=== PATIENT | male | born 1940 | race Caucasian/White ===

== ENCOUNTER 2017-02-18 23:46 | Inpatient (IN) ==
[2017-02-19] MEDS ORDERED: KETOROLAC 30 MG/1 ML VIAL IV STA (00:10)
[2017-02-19] MEDS ORDERED: PANTOPRAZOLE 40 MG VIAL IV STA (00:11)
[2017-02-19 00:17] LABS: Basophils # 0.1 10*3/uL (0.0-0.2); Basophils % 1.1 % (0.0-0.8); Eosinophils # 0.1 10*3/uL (0.0-0.87); Eosinophils % 1.4 % (0.00-10.9); Hematocrit 44.9 VOL% (42.0-52.0); Hemoglobin 14.6 GM/DL (14.0-18.0); Immature Granulocytes % 0.4 %; Immature Granulocytes Absolute 0.03 #; Lymphocytes # 0.6 10*3/uL (1.4-4.0); Lymphocytes % 8.4 % (21.2-54.2); Mean Corpuscular HGB Conc 32.5 GM/DL (32-36); Mean Corpuscular Hemoglobin 32 PG (27-34); Mean Corpuscular Volume 97.6 FL (87-102); Mean Platelet Volume 10.6 FL (9.6-12.0); Monocytes # 0.5 10*3/uL (0.11-0.8); Monocytes % 6.8 % (1.7-12.7); Neutrophils # 5.7 10*3/uL (1.4-7.4); Neutrophils % 81.9 % (38.7-73.9); Platelet Count 165 T/CUMM (130-400); Red Cell Distribution Width 13.5 % (9.3-17.3)
[2017-02-19] MEDS ORDERED: HEPARIN 1,000 UNIT/1 ML VIAL IV STA (00:30)
[2017-02-19] MEDS ORDERED: HEPARIN DRIP 25,000 UNITS/500 ML PREMIX IV SCH (00:30)
[2017-02-19] MEDS ORDERED: PANTOPRAZOLE 40 MG VIAL IV ONE (00:31)
[2017-02-19] MEDS ORDERED: KETOROLAC 30 MG/1 ML VIAL ONE (00:31)
[2017-02-19] MEDS ORDERED: NITROGLYCERIN 2% OINT 1 INCH/GM PACK TOP STA (00:32)
--- NOTE | 2017-02-19 00:38 | Emergency Department Note ---
Arrival - Arrival Chief Complaint: Chest Pain Stated Complaint: chest pain, sob ED Nursing Triage Note: C/O Chest pain over left breast radiating down left arm. Onset approx one hour ago while sitting down. +nausea and shortness of breath with the pain. Pt reports some relief since he arrived. Mode of Arrival: Wheelchair Time Seen by Provider: 02/19/17 00:07 - History of Present Illness HPI Narrative: This is a 76-year-old white male with a history of gastroesophageal reflux, chest pain resulting in a cardiac catheterization 4 years ago which was reported by the patient has normal, deep venous thrombosis for which an IVC filter was placed and for which he was on anticoagulant for 3 months, he developed chest pressure radiating to his left arm and left shoulder blade associated with nausea but no diaphoresis vomiting or shortness of breath approximately 1 hour prior to arrival. The patient appears to have a left bundle branch block on EKG but no old EKG is available to compare. The patient had a short run of a wide complex tachycardia at a rate of 150 bpm which lasted for approximately 2 seconds. There were no symptoms during this. Allergies/Adverse Reactions: Allergies Allergy/AdvReac Type Severity Reaction Status Date / Time Penicillins Allergy ANAPHYLAXIS Verified 01/23/15 19:31 fentanyl AdvReac Vomiting Verified 01/25/15 10:03 Home Medications: Home Medications Medication Instructions Recorded Confirmed Type HYDROcodone/ACETAMIN 5-325 [[place] 1 tablet PO Q4H PRN #30 tablet 01/25/15 Rx 5-325] diazePAM [Diazepam] 1 mg PO Q4H PRN #0 01/25/15 02/18/17 Rx Carisoprodol [Soma] 250 mg PO BID PRN 02/18/17 02/18/17 History Oxycodone HCl/Acetaminophen 1 each PO Q8H PRN 02/18/17 02/18/17 History [Percocet 10-325 mg Tablet] Review of System - Review of System Constitutional: Absent: fever, night sweats Eyes: Absent: redness, vision change Head/Ears/Nose/Throat: Absent: epistaxis, nasal drainage Respiratory: Absent: respiratory distress, wheezing Cardiovascular: Absent: dyspnea on exertion, orthopnea Gastrointestinal: Absent: diarrhea, constipation Genitourinary male: Absent: hematuria, discharge Musculoskeletal: Absent: joint swelling, lower back pain, leg pain Skin: Absent: change in color, change in hair/nails, pruritus Neurological: Absent: numbness, paresthesias Psychiatric: Present: anxiety. Absent: depression Endocrine: Absent: heat intolerance, polydipsia, polyuria Hematological/Lymphatic: Absent: easy bruising, lymphadenopathy Allergic/Immunologic: Absent: urticaria, itchy eyes Medical,Surgical,& Family Hx - Medical History Psychological: History of: Anxiety Disorders Gastrointestinal: History of: GERD Musculoskeletal: History of: Back/Neck Problems - Family History Family History: Reports;: Family Cancer, Family Stroke - Social History Smoking Status: Never smoker Frequency of Alcohol Use: None Type of Drug Use: None Exam Vital Signs: Vital Signs Temperature 98.5 F 02/18/17 23:53 Pulse Rate 78 02/18/17 23:53 Respiratory Rate 18 02/18/17 23:53 Blood Pressure 198/83 02/18/17 23:53 O2 Sat by Pulse Oximetry 97 02/18/17 23:53 - General Exam limited due to: ALOC - Eye Eye exam: Present: PERRL, EOMI - ENT ENT exam: Present: normal exam - Neck Neck exam: Present: normal inspection - Chest Chest inspection: Present: normal inspection - Respiratory Respiratory exam: Present: normal lung sounds bilaterally - Cardiovascular Cardiovascular exam: Present: regular rate, normal rhythm - Abdominal Exam Abdominal exam: Present: soft, normal bowel sounds - Extremities Exam Extremities exam: Present: normal inspection, full ROM - Back Exam Back exam: Present: normal inspection, full ROM - Neurological Exam Neurological exam: Present: alert, oriented X3 - Psychiatric Psychiatric exam: Present: normal affect, normal mood - Skin Skin exam: Present: warm, dry Results - Labs CBC & BMP: 02/19/17 00:03 02/19/17 00:03
[2017-02-19 00:43] LABS: Alanine Aminotransferase 20 U/L (16-61); Albumin 3.1 G/DL (3.4-5.0); Alkaline Phosphatase 132 U/L (45-117); Aspartate Amino Transferase 15 U/L (0-37); Bilirubin,Total < 0.39 MG/DL (0.2-1.0); Blood Urea Nitrogen 13 MG/DL (7-18); Glucose 144 MG/DL (74-106); Osmolality,Calculated 281.4 MOS/KG (273-304); Sodium 140 MMOL/L (136-145); Total Protein 6.6 G/DL (6.4-8.3); Troponin I Only < 0.015 NG/ML (0.00-0.045)
[2017-02-19] MEDS ORDERED: NITROGLYCERIN 2% OINT 1 INCH/GM PACK TOP ONE (00:53)
[2017-02-19] MEDS ORDERED: HEPARIN 5,000 UNIT/1 ML VIAL ONE (00:54)
[2017-02-19] MEDS ORDERED: ALBUTEROL 2.5 MG/3 ML NEB RESP TX PRN (02:54)
[2017-02-19] MEDS ORDERED: DIAZEPAM 2 MG TABLET PO PRN (03:00)
[2017-02-19] MEDS ORDERED: CARISOPRODOL 250 MG PO PRN (03:00)
--- NOTE | 2017-02-19 03:34 | Hospitalist History & Physical ---
Assessment and Plan (1) Pulmonary embolus Status: Acute Current Visit: Yes (2) Chest pain Status: Acute Current Visit: Yes (3) Chronic neck pain Status: Acute Current Visit: No (4) Hypertension Status: Acute Assessment and plan: We will admit the patient to ICU. Will consult cardiology for his chest pain. He does have the small PE. I do not feel that this fully explains the chest pain. I would like cardiology's input in regards to this patient. He did have a short run of V. tach according to the nurse. I am going to continue with the heparin infusion for now. Will order a ultrasound of his bilateral lower extremities. Reevaluate patient in the morning and adjust plans as appropriate. Current Visit: No History of Present Illness Chief complaint: Chest pain History of present illness: Mr. Le is a 76 year old male with past medical history of DVT who came into the hospital [facility] complaining about chest pain. Patient reports that he was hospitalized for chest pain for 5 years ago had a left heart cath and was told that it was negative. Patient valente first developed nausea and then he said he had this pain around his heart. He did describe it as pressure at times. He said the pain radiated down his left arm. When patient had the DVT several years ago he had IVC filter placed. He was on Xarelto for about 3 months and then it was discontinued by Dr. Chaudhari. While in the emergency room he did have a short run of V. tach. I was consulted to admit the patient Home Medications Medication Instructions Recorded Confirmed Type HYDROcodone/ACETAMIN 5-325 [[place] 1 tablet PO Q4H PRN #30 tablet 01/25/15 Rx 5-325] diazePAM [Diazepam] 1 mg PO Q4H PRN #0 01/25/15 02/18/17 Rx Carisoprodol [Soma] 250 mg PO BID PRN 02/18/17 02/18/17 History Oxycodone HCl/Acetaminophen 1 each PO Q8H PRN 02/18/17 02/18/17 History [Percocet 10-325 mg Tablet] Allergies Allergy/AdvReac Type Severity Reaction Status Date / Time Penicillins Allergy ANAPHYLAXIS Verified 01/23/15 19:31 fentanyl AdvReac Vomiting Verified 01/25/15 10:03 Medical,Surgical,& Family Hx - Medical History Psychological: History of: Anxiety Disorders Gastrointestinal: History of: GERD Musculoskeletal: History of: Back/Neck Problems - Surgical History Abdominal Surgeries: Surgical HX of: Hernia Repair Reproductive Surgeries: Surgical HX of;: Prostate Surgery - Family History Family History: Reports;: Family Cancer, Family Stroke - Social History Smoking Status: Never smoker Frequency of Alcohol Use: None Type of Drug Use: None 12 point system: reviewed and no additional remarkable complaints except as stated Exam - Constitutional Vitals: Period Temp Pulse Resp BP Sys/[place] Pulse Ox Last 24 Hr 98.5 F-98.5 F 61-78 16-18 198-198/83-83 97 General appearance: normal weight - Head Head exam: Present: normal inspection - Eye Eye exam: Present: EOMI Pupils: Present: JENNIFER - ENT ENT exam: Present: normal exam - Neck Neck exam: Present: normal inspection - Respiratory Respiratory exam: Present: clear to auscultation bilaterally - Cardiovascular Cardiovascular exam: Present: regular rate and rhythm - GI/Abdominal GI/Abdominal exam: Present: normal bowel sounds - Extremities Exam Extremities exam: Present: normal inspection - Back Exam Back exam: Present: normal inspection - Neurological Exam Neurological exam: Present: alert, oriented X3 - Psychiatric Psychiatric exam: Present: normal affect, normal mood - Skin Skin exam: Present: normal color Results - Labs CBC & BMP: 02/19/17 00:03 02/19/17 00:03 Labs: Patient CT of his chest showed a small acute right lower lobe pulmonary embolus
--- NOTE | 2017-02-19 03:41 | EKG Report ---
Stationary ECG Study [facility] ER Test Date: 02/19/2017 12:12:55 AM Pat Name: MAHOGANY BELLA Department: Room: 129 Gender: M Waiter/Waitress Cabin Class: BRIGID : 1940 Requested by: Gonzales Garrett Order Number: [id number] Reading MD: LOYD PARMAR Intervals [place] Rate: 71 P: 75 DE: 189 QRS: -80 QRSD: 169 T: 19 QT: 527 QTc: 550 Interpretive Statements SINUS RHYTHM WITH FREQUENT SUPRAVENTRICULAR PREMATURE COMPLEXES RIGHT BUNDLE BRANCH BLOCK LEFT ANTERIOR FASCICULAR BLOCK Electronically Signed On 02-19-17 16:44:00 CDT by LOYD PARMAR [email or web address]
[2017-02-19] MEDS: PANTOPRAZOLE 40 MG VIAL IV SCH (04:50)
[2017-02-19 07:10] LABS: Basophils # 0.1 10*3/uL (0.0-0.2); Basophils % 0.8 % (0.0-0.8); Eosinophils # 0.1 10*3/uL (0.0-0.87); Eosinophils % 0.8 % (0.00-10.9); Hematocrit 38.8 VOL% (42.0-52.0); Hemoglobin 12.8 GM/DL (14.0-18.0); Immature Granulocytes % 0.3 %; Immature Granulocytes Absolute 0.02 #; Lymphocytes # 0.9 10*3/uL (1.4-4.0); Lymphocytes % 14.4 % (21.2-54.2); Mean Corpuscular Hemoglobin 32 PG (27-34); Mean Corpuscular Volume 96.5 FL (87-102); Mean Platelet Volume 11.7 FL (9.6-12.0); Monocytes # 0.7 10*3/uL (0.11-0.8); Monocytes % 10.6 % (1.7-12.7); Neutrophils # 4.7 10*3/uL (1.4-7.4); Neutrophils % 73.1 % (38.7-73.9); Platelet Count 155 T/CUMM (130-400); Red Blood Count 4.02 MC/CUMM (3.8-5.5); Red Cell Distribution Width 13.5 % (9.3-17.3); White Blood Count 6.5 T/CUMM (4-12)
--- NOTE | 2017-02-19 07:22 | CT Report ---
Exam: CT chest with contrast, PE study Date: 02/19/2017 Comparison: None Reason: Chest pain Technique: Axial images of the chest were obtained after administration of 80 cc of IV Omnipaque 350 intravenous contrast. Coronal reformatted images were also acquired. The study was performed per pulmonary embolism protocol. Total DLP: 259.90. This exam was initially interpreted by [facility]. Findings: The scans are degraded by motion artifact. The heart is enlarged with coronary artery calcifications. Limited contrast in the thoracic aorta with the ascending aorta measuring 42 mm. Small filling defect in segmental branch of the right lower lobe pulmonary artery. No chest lymphadenopathy. 28 mm fat-containing left adrenal nodule, small right renal cyst, diverticulosis of the colon. Degenerative changes are noted. Very minimal emphysema with probable minimal chronic scarring. Impression: Small right lower lobe pulmonary embolus with findings discussed with ER physician by interpreting C physician at the time of the initial report. Minimal cardiomegaly with coronary artery calcifications and minimal dilatation of the ascending aorta. Very minimal emphysema with probable minimal chronic scarring. 28 mm probable left adrenal adenoma, small right renal cyst, and diverticulosis of the colon. This CT exam was performed using one or more the following dose reduction techniques: Automated exposure control, adjustment of the MA and/or KV according to patient size, or use of iterative reconstruction technique. PROCEDURE INTERPRETED AT [facility] DEPARTMENT OF RADIOLOGY Final Report Signed by: Dr. Tayler Brown
[2017-02-19] MEDS ORDERED: oxyCODONE/ACETAMINOPHEN 5-325 MG TABLET PO PRN (07:30)
--- NOTE | 2017-02-19 08:17 | XRay Report ---
Portable chest Date: 02/19/2017 Clinical history: Chest pain Comparison: 01/23/2015 Technique: Portable AP sitting chest Findings: The heart is slightly larger in size with uncoiling of the aorta. Artifactual densities limit the exam. The lungs are overexpanded with chronic scarring. Stable mediastinum with degenerative changes. Impression: The heart is slightly larger in size with artifactual densities limiting the exam. The lungs remain overexpanded with chronic scarring. PROCEDURE INTERPRETED AT [facility] DEPARTMENT OF RADIOLOGY Final Report Signed by: Dr. Tayler Brown
[2017-02-19 08:20] LABS: Alanine Aminotransferase 14 U/L (16-61); Albumin 2.5 G/DL (3.4-5.0); Alkaline Phosphatase 102 U/L (45-117); Aspartate Amino Transferase 17 U/L (0-37); Bilirubin,Total < 0.39 MG/DL (0.2-1.0); Blood Urea Nitrogen 10 MG/DL (7-18); Calcium 9.7 MG/DL (8.5-10.1); Cholesterol 201 MG/DL (50-200); Glucose 104 MG/DL (74-106); HDL Cholesterol 69 MG/DL (40-60); Osmolality,Calculated 279.3 MOS/KG (273-304); Potassium 3.9 MMOL/L (3.5-5.1); Risk Ratio 2.91; Sodium 141 MMOL/L (136-145); Total Protein 5.5 G/DL (6.4-8.3); Triglycerides 65 MG/DL (2-150); Troponin I Only < 0.015 NG/ML (0.00-0.045)
--- NOTE | 2017-02-19 08:23 | Ultrasound Report ---
History: Pulmonary embolus Date: 02/19/2017 Study: Bilateral lower extremity color-flow venous Doppler study Comparison exam: April 24, 2015 right lower extremity venous ultrasound Color Doppler, wave form analysis, and compression analysis of the deep veins of both lower extremities from the common femoral vein level through the popliteal vein level was performed. There is chronic nonoccluding deep venous thrombosis in the right popliteal vein which was present on the comparison study. There is no obvious new or worsening DVT.. Waveform analysis is otherwise unremarkable. Ultrasound images were captured and archived Impression: There is some chronic nonoccluding deep venous thrombosis in the right popliteal vein which is unchanged from the comparison study. There is no new or worsening DVT otherwise PROCEDURE INTERPRETED AT [facility] DEPARTMENT OF RADIOLOGY Final Report Signed by: Dr. Orin Jurado
[2017-02-19] MEDS ORDERED: CARISOPRODOL 350 MG TABLET PO PRN (09:17)
--- NOTE | 2017-02-19 11:06 | Cardiology Consult Note ---
Addendum entered and electronically signed by Stefania Davison NP 02/19/17 12: 00: ADDENDUM: I reviewed this case with Dr. Berman. Patient did not have NSVT but rather had an arrhythmia which was brief such as possible brief run of PACs versus beginning of atrial fibrillation which transitioned back to normal sinus rhythm quickly. Regardless, patient needs lifelong anticoagulation. At this time, I will start vitamin C orally twice daily. Also, will start Eliquis 10 mg orally twice daily 7 days then decrease to 5 mg orally twice daily. Patient was previously taking Xarelto but could not afford it and prefers not to resume Xarelto. I will asked case management to work with patient to see if we can get an assistance program with Eliquis or to check on the cost of Eliquis regardless. Okay to transfer to telemetry at this time. Original Note: Assessment and Plan - Time spent with patient Time spent with patient: Greater than 30 minutes (1) NSVT (nonsustained ventricular tachycardia) Status: Acute Assessment and plan: SEE PLAN OF CARE LISTED BELOW Current Visit: Yes (2) S/P IVC filter Status: Chronic Assessment and plan: SEE PLAN OF CARE LISTED BELOW Current Visit: Yes (3) Chest pain Status: Acute Assessment and plan: SEE PLAN OF CARE LISTED BELOW Current Visit: Yes (4) Pulmonary embolus Status: Acute Assessment and plan: SEE PLAN OF CARE LISTED BELOW Current Visit: Yes (5) Ischemic stroke Status: Chronic Assessment and plan: SEE PLAN OF CARE LISTED BELOW Current Visit: No (6) Right leg DVT Status: Chronic Assessment and plan: SEE PLAN OF CARE LISTED BELOW Current Visit: Yes Qualifiers: Affected thrombotic vein of extremity: popliteal History of Present Illness - Data of Consult Patient: known to practice within the last 3 years Consult date: 02/19/17 Requesting Physician: Jordan Knight Primary care physician: Gonzales Lyles - Consult Narrative Reason for consult: Chest pain, pulmonary embolism History of present illness: MEDICAL SAFETY DIRECTOR: DR. SERRANO Patient is being seen in the CCU Mr. Le, 76WM, with risk factors significant for: age, TIA. Past medical history right lower extremity DVT for which an IVC filter was placed January 2015. Patient was placed on Xarelto but was discontinued after 3 months. Patient has no contraindications to taking anticoagulants. Of note, patient actually sought medical advice January 2015 after he experienced sudden loss of vision, diagnosed with TIA. During his hospital stay that he was diagnosed with DVT. Echocardiogram revealed EF 55-60% without significant valvular abnormality. Presented to the ED of [facility] February 19, 2017 with complaints of sudden, sharp and stabbing chest pain. Chest pain was located in the left substernal area, radiating to his left scapula and affecting his left shoulder and arm. He developed nausea but no shortness of breath. He can identify no aggravating factors nor any alleviating factors. Chest discomfort lasted approximately 30- 45 minutes. He did take an Aspirin prior to arriving at the emergency department and the chest pain had resolved prior to arrival. He was found to have small right lower lobe pulmonary embolus and 28 mm probable left adrenal adenoma. Venous ultrasound reveals chronic nonoccluding DVT in the right popliteal vein. He had an episode of 4 beats of NSVT the ER, asymptomatic. Patient has been started on IV Heparin. Patient reports normally he is active. He frequently walks 1 mile for exercise and can perform these activities without chest pain, heaviness, tightness. March 2012, underwent elective cardiac catheterization which revealed no evidence of obstructive disease. Troponin has been negative. EKG does not reveal acute OK. At this time, echocardiogram has been ordered and will be reviewed by Dr. Berman. Will continue to monitor for any arrhythmias. Will order magnesium level this morning, TSH/T4. Recommend transitioning from IV Heparin to a novel anticoagulant today but will further discuss with Dr. Berman and await additional recommendations. Anticoagulation will most likely be lifelong even though patient has an IVC filter as micro emboli can filter through. I suspect IV Heparin was initiated rather than novel anticoagulant in order to further delineate etiology and plan of care to workup his chest pain (such as heart catheterization). However, I suspect his chest pain is noncardiac in nature but will await results of echocardiogram. IMPRESSION/PLAN: 1. ACUTE PTE - currently on IV Heparin. Will need alternate oral medication once plan of care has been defined. This will occur through the hospital stay. 2. CHRONIC DVT - continue current plan of care 3. S/P IVC FILTER - continue with heparin for now 4. LEFT ADRENAL ABNORMALITY - will further defer to attending for additional workup 5. HISTORY OF STROKE - prior ischemic stroke affecting his vision briefly. No prior arrhythmia has been noted. 6. NSVT - checking electrolytes. If blood pressure will allow, may consider low-dose beta-iban CC: Abdulaziz Egan MD - Home Medications and Allergies Home Medications: Home Medications Medication Instructions Recorded Confirmed Type HYDROcodone/ACETAMIN 5-325 [[place] 1 tablet PO Q4H PRN #30 tablet 01/25/15 Rx 5-325] diazePAM [Diazepam] 1 mg PO Q4H PRN #0 01/25/15 02/18/17 Rx Oxycodone HCl/Acetaminophen 1 each PO Q8H PRN 02/18/17 02/18/17 History [Percocet 10-325 mg Tablet] Carisoprodol [Carisoprodol] 350 mg PO BID PRN 02/19/17 02/19/17 History Allergies/Adverse Reactions: Allergies Allergy/AdvReac Type Severity Reaction Status Date / Time Penicillins Allergy ANAPHYLAXIS Verified 01/23/15 19:31 fentanyl AdvReac Vomiting Verified 01/25/15 10:03 Review of systems: REVIEW OF SYSTEMS: - Constitutional Constitutional: Denies fatigue. Absent: syncope, anorexia, night sweats - EENT Eyes: Absent: blurry vision, diplopia Ears: Absent: decreased hearing, ear pain, ear discharge - Cardiovascular: See HPI Cardiovascular: Denies: chest pain with exertion. Chest pain occurred at rest. Does not believe the chest discomfort was worsened with deep inspiration. Denies dyspnea on exertion, edema, palpitations. Absent: claudication - Respiratory Respiratory: Denies: LARSEN, cough. Absent: wheezing, hemoptysis, change in phlegm color - Gastrointestinal Gastrointestinal: Present: constipation. Absent: abdominal pain, hematemesis , hematochezia, melena, change in bowel habits, nausea - Genitourinary Genitourinary: Absent: difficulty urinating, dysuria, urinary hesitancy, flank pain - Musculoskeletal Musculoskeletal: Present: Yesterday, patient was experiencing soreness and pain of right calf with flexion. Absent: joint swelling, muscle cramps, muscle weakness - Neurological Neurological: Present: normal gait without frequent falls. Absent: dizziness, hemiparesis - Psychiatric Psychiatric: Absent: anxiety, depression, difficulty concentrating - Endocrine Endocrine: Denies fatigue. Absent: cold intolerance, heat intolerance, polyuria , polyphagia, polydipsia - Hematologic/Lymphatic Hematologic/Lymphatic: Present: easy bruising. Absent: easy bleeding -Integumentary Integumentary: Absent: lesions, rashes, skin breakdown Medical,Surgical,& Family Hx - Medical History Cardio: No history of: CAD, Hypertension, OK Psychological: History of: Anxiety Disorders Neurology: History of: Migraine, Multiple Sclerosis HEENT: History of: Eye Problem (cataract surgery) Rheumatology: History of;: Rheumatoid Arthritis Gastrointestinal: History of: GERD Musculoskeletal: History of: Back/Neck Problems - Surgical History Abdominal Surgeries: Surgical HX of: Hernia Repair Reproductive Surgeries: Surgical HX of;: Prostate Surgery (2000) - Family History Family History: Reports;: Family Cancer (mother), Family Stroke - Social History Smoking Status: Never smoker Have you smoked in the last 12 months: No Frequency of Alcohol Use: None Type of Drug Use: None Physical Examination Vital Signs Temp Pulse Resp BP Pulse Ox 98.5 F 61 18 198/83 97 02/18/17 23:53 02/18/17 23:53 02/18/17 23:53 02/18/17 23:53 02/18/17 23:53 Exam: General: [Appears well with no apparent distress.] [Pleasant and cooperative. ] [Appears comfortable.] HEENT: [PERRL, normocephalic, atraumatic. Mucous membranes moist. No jaundice noted. Conjunctiva moist and clear, sclerae anicteric] Neck: No JVD/HJR, no thyromegaly or lymphadenopathy noted. No carotid bruit appreciated Cardiac: [Regular rate and rhythm.] [No obvious murmur rub or gallop.] Lungs: [Clear to auscultation without accessory muscle use to assist the respiratory pattern.] Not requiring oxygen Abdomen: Soft, bowel sounds normoactive. Nontender and nondistended. No abdominal bruit or thrill noted. No masses noted. Musculoskeletal: Positive Vignesh's right lower extremity. No fluid collection. Decreased range of motion is noted. Extremities: No clubbing, cyanosis noted. [ No edema noted.] Upper extremity pulses 2+. Lower extremity pulses 2+. Capillary refill less than 3 seconds. Skin: No unusual lesions or rashes. No skin breakdown appreciated. Neuro: Awake, alert and oriented 3. Moves all extremities well without hemiparesis or paralysis. No essential tremor is appreciated. Result/EKG - Labs CBC & BMP: 02/19/17 06:39 02/19/17 06:39 Lab Results: I have reviewed the past 24 hour labs Labs: Laboratory Results - last 24 hr 02/19/17 02/19/17 02/19/17 00:03 00:03 06:39 WBC 7.0 6.5 RBC 4.60 4.02 Hgb 14.6 12.8 L Hct 44.9 38.8 L MCV 97.6 96.5 MCH 32 32 MCHC 32.5 33.0 RDW 13.5 13.5 Plt Count 165 155 MPV 10.6 11.7 Neut % (Auto) 81.9 H 73.1 Lymph % (Auto) 8.4 L 14.4 L [place] % (Auto) 6.8 10.6 Eos % (Auto) 1.4 0.8 Baso % (Auto) 1.1 H 0.8 Neut # (Auto) 5.7 4.7 Lymph # (Auto) 0.6 L 0.9 L [place] # (Auto) 0.5 0.7 Eos # (Auto) 0.1 0.1 Baso # (Auto) 0.1 0.1 Immature Gran % 0.4 0.3 Nucleated RBC % 0.0 0.0 Immature Gran # 0.03 0.02 Nucleated RBCs # 0.00 0.00 Immature Plt Fraction 0.0 0.0 Circ Anticoag PTT Sodium 140 Potassium 4.0 Chloride 105 Carbon Dioxide 30 Anion Gap 9.0 BUN 13 Creatinine 1.30 GFR Calculation 57 BUN/Creatinine Ratio 10.00 Glucose 144 H Calculated Osmolality 281.4 Calcium 10.0 Total Bilirubin < 0.39 AST 15 ALT 20 Alkaline Phosphatase 132 H Troponin I < 0.015 Total Protein 6.6 Albumin 3.1 L Globulin 3.5 Albumin/Globulin Ratio 0.8 L Triglycerides Cholesterol LDL Cholesterol VLDL Cholesterol HDL Cholesterol Heart Disease Risk Ratio 02/19/17 02/19/17 02/19/17 06:39 06:39 06:39 WBC RBC Hgb Hct MCV MCH MCHC RDW Plt Count MPV Neut % (Auto) Lymph % (Auto) [place] % (Auto) Eos % (Auto) Baso % (Auto) Neut # (Auto) Lymph # (Auto) [place] # (Auto) Eos # (Auto) Baso # (Auto) Immature Gran % Nucleated RBC % Immature Gran # Nucleated RBCs # Immature Plt Fraction Circ Anticoag PTT 47.8 H Sodium 141 Potassium 3.9 Chloride 107 Carbon Dioxide 28 Anion Gap 9.9 BUN 10 Creatinine 1.00 GFR Calculation 80 BUN/Creatinine Ratio 10.00 Glucose 104 Calculated Osmolality 279.3 Calcium 9.7 Total Bilirubin < 0.39 AST 17 ALT 14 L Alkaline Phosphatase 102 Troponin I < 0.015 Total Protein 5.5 L Albumin 2.5 L Globulin 3.0 Albumin/Globulin Ratio 0.8 L Triglycerides 65 Cholesterol 201 H LDL Cholesterol 107.0 VLDL Cholesterol 13.0 HDL Cholesterol 69 H Heart Disease Risk Ratio 2.91 - Diagnostic Findings Procedure: Chest x-ray: report reviewed by me, CT - chest: report reviewed by me , Ultrasound: report reviewed by me - EKG EKG results: interpreted by me EKG shows: sinus rhythm
[2017-02-19] MEDS ORDERED: KETOROLAC 30 MG/1 ML VIAL IV ONE ×2 (11:36→15:47)
[2017-02-19] MEDS: ASCORBIC ACID 500 MG TABLET PO SCH ×2 (12:42→20:10)
[2017-02-19] MEDS: APIXABAN 5 MG TABLET PO SCH ×2 (12:42→20:10)
[2017-02-19 13:18] LABS: Free T4 (Free Thyroxine) 0.9 NG/DL (0.76-1.46); Magnesium 2.1 MG/DL (1.8-2.4); Thyroid Stimulating Hormone 2.55 uIU/ml (0.358-3.74)
[2017-02-19] MEDS ORDERED: ACETAMINOPHEN 325 MG TABLET PO PRN (15:48)
--- NOTE | 2017-02-19 18:32 | ECHO Report ---
Phillip Le Exam Date: 02/19/2017 08:28 Referring Physician: Technologist: Debra Peñaloza RDCS Age: 76 Ht (in): 72 Wt (lb): 155 Gender: M Exam Location: [facility] Echo Indications: Pulmonary embolus, Chest pain, unspecified, Chronic neck pain, Essential (primary) hypertension, Shortness of breath BP: 130 / 81 HR: 59 Rhythm: Sinus Technical Quality: Fair IMPRESSIONS EF 60 % . Grade I/IV diastolic dysfunction (abnormal relaxation filling pattern), normal to mildly elevated filling pressures. The right ventricle is normal in size and function. The right atrium is mildly enlarged. The left atrium is mildly enlarged. Morphologically normal mitral valve. Trace mitral valve regurgitation. Aortic valve sclerosis. No aortic valve regurgitation. Moderate tricuspid valve regurgitation. PAP 40-45 mm,HG. Pulmonic valve not well visualized. Normal pericardium without effusion. Normal ascending aorta dimension. MEASUREMENTS (Male / Female) Normal Values 2D ECHO LV Diastolic Diameter PLAX 4.7 cm 4.2 - 5.9 / 3.9 - 5.3 cm LV Systolic Diameter PLAX 2.8 cm LV Fractional Shortening PLAX 39.7 % IVS Diastolic Thickness 0.9 cm 0.6 - 1.0 / 0.6 - 0.9 cm LVPW Diastolic Thickness 0.9 cm 0.6 - 1.0 / 0.6 - 0.9 cm RV Internal Dim ED PLAX 2.8 cm Aortic Root Diameter 4.2 cm LA Systolic Diameter LX 3.2 cm 3.0 - 4.0 / 2.7 - 3.8 cm DOPPLER TR Peak Velocity 278.0 cm/s TR Peak Gradient 30.9 mmHg FINDINGS Left Ventricle EF 60 % . Grade I/IV diastolic dysfunction (abnormal relaxation filling pattern), normal to mildly elevated filling pressures. Right Ventricle The right ventricle is normal in size and function. Right Atrium The right atrium is mildly enlarged. Left Atrium The left atrium is mildly enlarged. Mitral Valve Morphologically normal mitral valve.trace mitral valve regurgitation. Aortic Valve Aortic valve sclerosis. No aortic valve regurgitation. Tricuspid Valve Tricuspid valve not well visualized. Moderate tricuspid valve regurgitation. PAP 40-45 mm,HG. Pulmonic Valve Pulmonic valve not well visualized. Pericardium Normal pericardium without effusion. Aorta Normal ascending aorta dimension. Gunnar Felicity (Electronically Signed) Final Date: 19 February 2017 18:17
[2017-02-19] MEDS ORDERED: BISACODYL 10 MG SUPP RECTAL PRN (20:24)
[2017-02-20 06:16] LABS: Basophils # 0.1 10*3/uL (0.0-0.2); Basophils % 1.3 % (0.0-0.8); Eosinophils # 0.2 10*3/uL (0.0-0.87); Eosinophils % 2.8 % (0.00-10.9); Hematocrit 39.2 VOL% (42.0-52.0); Hemoglobin 13.2 GM/DL (14.0-18.0); Immature Granulocytes % 0.3 %; Immature Granulocytes Absolute 0.02 #; Lymphocytes # 0.9 10*3/uL (1.4-4.0); Lymphocytes % 13.7 % (21.2-54.2); Mean Corpuscular HGB Conc 33.7 GM/DL (32-36); Mean Corpuscular Hemoglobin 32 PG (27-34); Mean Corpuscular Volume 95.8 FL (87-102); Mean Platelet Volume 11.4 FL (9.6-12.0); Monocytes % 13.8 % (1.7-12.7); Neutrophils # 4.7 10*3/uL (1.4-7.4); Neutrophils % 68.1 % (38.7-73.9); Platelet Count 159 T/CUMM (130-400); Red Blood Count 4.09 MC/CUMM (3.8-5.5); Red Cell Distribution Width 13.3 % (9.3-17.3); White Blood Count 6.9 T/CUMM (4-12)
[2017-02-20 06:50] LABS: Magnesium 2.1 MG/DL (1.8-2.4); Potassium 4.2 MMOL/L (3.5-5.1)
[2017-02-20] MEDS ORDERED: BISACODYL 5 MG TABLET PO SCH (09:00)
[2017-02-20] MEDS: APIXABAN 5 MG TABLET PO SCH (09:58)
[2017-02-20] MEDS: ASCORBIC ACID 500 MG TABLET PO SCH (09:58)
[2017-02-20] MEDS: PANTOPRAZOLE 40 MG VIAL IV SCH ×2 (10:01→10:43)
--- NOTE | 2017-02-20 10:45 | Physician Query Form ---
CLICK EDIT DOCUMENT TO SELECT QUERY ANSWER --> OK --> SIGN Ina Bansal RN Clinical [employer] Floor [employer] W) [phone] (f) [phone] [email or web address]: Make your selection(s) from the choices in EACH section by typing an "x" and enter comments in the comment section. Please use your independent medical judgment in providing your response. This request does not imply that any particular answer is desired or expected. CLINICAL INDICATORS: (Providers should not edit this section) Based on documentation of Creatinine from 1.3 to 1.0. GFR from 57 to 80. Monitored with serial lab checks. Clarify which of the following most accurately represents the patient's renal status: (x ) Acute kidney injury (non-traumatic) ( ) Acute renal failure ( ) Acute renal failure with underlying Chronic Kidney Disease (CKD) - please provide stage below ( ) Acute renal failure with pathological renal lesion ( ) Acute renal failure with necrosis ( ) tubular ( ) medullary ( ) cortical ( ) CKD - please provide stage below ( ) End Stage Renal Disease ( ) Acute interstitial nephritis ( ) Hepatorenal syndrome ( ) Other, please specify: ( ) Clinically unable to determine Chronic Kidney Disease Stages Source: National Kid[employer] Foundation ( ) Stage I (eGFR > or = 90) ( ) Stage II (eGFR 60 - 89) ( ) Stage III (eGFR 30 - 59) ( ) Stage IV (eGFR 15 - 29) ( ) Stage V (eGFR < 15 or dialysis) COMMENTS: PLEASE ALSO DOCUMENT RESPONSE IN PROGRESS NOTES AND/OR DISCHARGE SUMMARY Use of terms such as suspected, likely, or probable (associated with a specific diagnosis that is being evaluated, monitored, or treated as if it exists) are acceptable and can be restated in the discharge summary if not ruled out. MTDD
[2017-02-20] MEDS ORDERED: KETOROLAC 30 MG/1 ML VIAL IV ONE (11:00)
--- NOTE | 2017-02-20 11:09 | Discharge Summary ---
<Bonnie Martinez - Last Filed: 02/20/17 11:17> Hospital Course - Hospital Course Hospital Course: Mr Le 76 y/o w/PMHx Gerd, Anxiety, DVT w/IVC filter placement, CVA and Chronic back/neck pain presented to the ED on 02/19/17 for further evaluation of chest pressure with radiation to left arm and shoulder with nausea. IN ED: LABS noted: Toponin negative x3. Venous doppler BI: chronic nonoccluding deep venous thrombosis in right popliteal vein. CT PE with small right lower lobe pulmonary embolus. He was started on Heparin Infusion. He was admitted to the intensive care unit for close monitoring. Cardiology consulted for assistance: Cardiology recommends lifelong anticoagulation and started Eliquis, consulted Case Management for assistance with Eliquis cost. Agreed patient stable and was transferred to Telemetry for further monitoring and continuation of care. Echo: EF 60%. Grade I/IV diastolic dysfunction (abnormal relaxation filling pattern) normal to mildly elevated filling pressures. Today patient is stable and symptoms have improved. He has reached maximal benefit of inpatient stay. He will be discharged home. He will follow-up with cardiology in 6 weeks. Discharge Plan - Discharge Data Disposition: Disch To Home/Self Care - Discharge Medications New Ascorbic Acid Tab [Vitamin C Tab] 1,000 mg PO BID tablet Apixaban [Eliquis] 5 mg PO BID #60 tablet Continue HYDROcodone/ACETAMIN 5-325 [[place] 5-325] 1 tablet PO Q4H PRN #30 tablet PRN Reason: Pain Mild (1-3) diazePAM [Diazepam] 1 mg PO Q4H PRN #0 PRN Reason: Headache Oxycodone HCl/Acetaminophen [Percocet 10-325 mg Tablet] 1 each PO Q8H PRN PRN Reason: Pain Carisoprodol 350 mg PO BID PRN PRN Reason: Pain - Follow Up or Referral - Forms/Instructions Exam - Constitutional Vitals: Period Temp Pulse Resp BP Sys/[place] Pulse Ox Last 24 Hr 98.3 F-99.1 F 53-74 10-22 115-141/67-79 90-98 Discharge Results Procedures and tests throughout hospitalization: Pending Orders 02/19/17 04:20 MRSA Surveillence, Inf Control Routine Labs on day of discharge: Labs from last 24 hours 02/20/17 02/20/1717 05:37 05:37 11:54 WBC 6.9 RBC 4.09 Hgb 13.2 L Hct 39.2 L MCV 95.8 MCH 32 MCHC 33.7 RDW 13.3 Plt Count 159 MPV 11.4 Neut % (Auto) 68.1 Lymph % (Auto) 13.7 L Lyman % (Auto) 13.8 H Eos % (Auto) 2.8 Baso % (Auto) 1.3 H Neut # (Auto) 4.7 Lymph # (Auto) 0.9 L Lyman # (Auto) 1.0 H Eos # (Auto) 0.2 Baso # (Auto) 0.1 Immature Gran % 0.3 Nucleated RBC % 0.0 Immature Gran # 0.02 Nucleated RBCs # 0.00 Immature Plt Fraction 0.0 Sodium 143 Potassium 4.2 Chloride 109 H Carbon Dioxide 29 Anion Gap 9.2 BUN 12 Creatinine 1.10 GFR Calculation 71 BUN/Creatinine Ratio 10.00 Glucose 93 Calculated Osmolality 284.0 Calcium 10.0 Magnesium 2.1 2.1 Troponin I Free T4 0.90 TSH 3rd Generation 2.550 02/19/17 11:54 WBC RBC Hgb Hct MCV MCH MCHC RDW Plt Count MPV Neut % (Auto) Lymph % (Auto) Lyman % (Auto) Eos % (Auto) Baso % (Auto) Neut # (Auto) Lymph # (Auto) Lyman # (Auto) Eos # (Auto) Baso # (Auto) Immature Gran % Nucleated RBC % Immature Gran # Nucleated RBCs # Immature Plt Fraction Sodium Potassium Chloride Carbon Dioxide Anion Gap BUN Creatinine GFR Calculation BUN/Creatinine Ratio Glucose Calculated Osmolality Calcium Magnesium Troponin I < 0.015 Free T4 TSH 3rd Generation DS: Provider Date of admission: 02/19/17 02:54 Primary care physician: . No PCP Attending physician on admission: Jordan Knight MD Consults: 02/19/17 02:54 Consult to Physician [CONS] Routine Comment: Consulting Provider: Cardiology - [facility] When should Consulting Provider be notified: In am Discharging clinician: Bonnie Martinez NP <Abdulaziz Egan - Last Filed: 02/20/17 11:23> Hospital Course - Time spent with patient Time with patient DS: Less than 30 minutes Diagnosis - Discharge Diagnosis (1) Pulmonary embolus Status: Acute (2) Chest pain Status: Resolved Discharge Plan - Discharge Data Condition at Discharge: Stable Discharge Diet: heart healthy Activity: increase activity as tolerated Hygiene: no restrictions Weight Bearing at Discharge: weight bear as tolerated Driving: no restrictions Contact your physician if you experience:: Shortness of breath Exam - Constitutional General appearance: normal weight - Head Head exam: Present: normocephalic, atraumatic - Eye Eye exam: Present: EOMI Pupils: Present: JENNIFER - ENT ENT exam: Present: normal exam - Neck Neck exam: Present: normal inspection - Respiratory Respiratory exam: Present: clear to auscultation bilaterally. Absent: wheezes - Cardiovascular Cardiovascular exam: Present: regular rate and rhythm - GI/Abdominal GI/Abdominal exam: Present: normal bowel sounds, soft. Absent: tenderness, rebound - Extremities Exam Extremities exam: Present: normal inspection - Back Exam Back exam: Present: normal inspection - Neurological Exam Neurological exam: Present: alert, oriented X3 - Psychiatric Psychiatric exam: Present: normal affect, normal mood - Skin Skin exam: Present: warm, intact
[2017-02-20 11:41] VITALS: BP 121/73
== END 2017-02-20 14:00 | disposition home or self-care (01) | DRG 176 ==
LOC: N.ED 23:46 → SUATTDRO 02-19 02:54 → N.EDINP 02-19 02:54 → N.CC 02-19 03:36 → N.TELES 02-19 15:03
PROVIDERS: ADMIT Internal Medicine; ATTEND Internal Medicine

== ENCOUNTER 2017-09-02 09:18 | Observation (INO) ==
[2017-09-02] MEDS ORDERED: ASPIRIN 325 MG TABLET PO STA (09:52)
[2017-09-02] MEDS ORDERED: ONDANSETRON 4 MG/2 ML VIAL IV PRN ×2 (09:52→13:49)
[2017-09-02] MEDS ORDERED: MORPHINE 2 MG/1 ML SYRINGE IV PRN ×2 (09:52→13:49)
[2017-09-02] MEDS ORDERED: ASPIRIN 325 MG TABLET ONE (10:09)
[2017-09-02] MEDS ORDERED: ONDANSETRON 4 MG/2 ML VIAL ONE (10:09)
[2017-09-02 10:13] LABS: Basophils # 0.1 10*3/uL (0.0-0.2); Basophils % 1.3 % (0.0-0.8); Eosinophils # 0.1 10*3/uL (0.0-0.87); Eosinophils % 1.7 % (0.00-10.9); Hematocrit 43.6 VOL% (42.0-52.0); Hemoglobin 14.4 GM/DL (14.0-18.0); Immature Granulocytes % 0.3 %; Immature Granulocytes Absolute 0.02 #; Lymphocytes % 13.6 % (21.2-54.2); Mean Corpuscular Hemoglobin 32 PG (27-34); Mean Corpuscular Volume 96.9 FL (87-102); Mean Platelet Volume 11.3 FL (9.6-12.0); Monocytes # 0.8 10*3/uL (0.11-0.8); Neutrophils % 72.1 % (38.7-73.9); Platelet Count 173 T/CUMM (130-400)
[2017-09-02 10:14] LABS: PT Patient Result 10.6 SECS; Partial Thromboplastin Time 26.8 SECS (0-40)
[2017-09-02 10:27] LABS: Alanine Aminotransferase 14 U/L (16-61); Albumin 2.7 G/DL (3.4-5.0); Alkaline Phosphatase 113 U/L (45-117); Aspartate Amino Transferase 17 U/L (0-37); Bilirubin,Total < 0.39 MG/DL (0.2-1.0); Blood Urea Nitrogen 15 MG/DL (7-18); Calcium 10.1 MG/DL (8.5-10.1); Glucose 103 MG/DL (74-106); Potassium 4.4 MMOL/L (3.5-5.1); Sodium 143 MMOL/L (136-145); Total Protein 6.1 G/DL (6.4-8.3); Troponin I Only < 0.015 NG/ML (0.00-0.045)
[2017-09-02 10:36] LABS: Amorphous Crystals,Urine Occasional /HPF (Few); Apearance,Urine CLEAR (Clear); Bilirubin,Urine Negative (Negative); Blood, Urine Negative (Negative); Glucose,Urine (UA) Negative (Negative); Ketones,Urine 5 mg/dL (Negative); Mucus,Urine Occasional /LPF (Occasional); Nitrite,Urine Negative (Negative); Protein,Urine Negative; RBC,Urine <1 /HPF (0-4); Squamous Epithelial Cell,Urine Occasional /HPF (0-10); Urine Color Straw (Yellow); Urine Specific Gravity 1.005 (1.001-1.035); Urine Urobilinogen < 2.0 EU/DL (0.2-1.0); WBC,Urine <1 /HPF (0-6)
[2017-09-02] MEDS ORDERED: ACETAMINOPHEN 325 MG TABLET PO PRN (13:49)
[2017-09-02] MEDS ORDERED: MAGNESIUM SULF RIDER 2 GM in PREMIX 1 EACH IV PRN (13:58)
[2017-09-02] MEDS ORDERED: POTASSIUM CHLORIDE 20 MEQ TABLET PO PRN (13:58)
[2017-09-02] MEDS: ASPIRIN EC 81 MG TABLET PO SCH (14:33)
[2017-09-02 14:54] LABS: Troponin I Only < 0.015 NG/ML (0.00-0.045)
[2017-09-02] MEDS ORDERED: DIAZEPAM 2 MG TABLET PO PRN (16:04)
[2017-09-02] MEDS ORDERED: traMADol 50 MG TABLET PO PRN (16:04)
[2017-09-02] MEDS ORDERED: oxyCODONE/ACETAMINOPHEN 5-325 MG TABLET PO PRN (16:04)
[2017-09-02] MEDS ORDERED: CARISOPRODOL 350 MG TABLET PO PRN (16:04)
[2017-09-02] MEDS: SODIUM CHLORIDE 0.9% 1,000 ML IV SCH ×2 (16:24→23:54)
[2017-09-02] MEDS: PANTOPRAZOLE 40 MG TABLET PO SCH (16:24)
[2017-09-02] MEDS ORDERED: METOPROLOL SUCCINATE XL 25 MG TABLET PO ONE (17:49)
[2017-09-02 17:53] LABS: Troponin I Only < 0.015 NG/ML (0.00-0.045)
[2017-09-02] MEDS: GABAPENTIN 300 MG CAPSULE PO SCH (17:58)
[2017-09-02] MEDS: APIXABAN 5 MG TABLET PO SCH (17:59)
[2017-09-02] MEDS: ASCORBIC ACID 500 MG TABLET PO SCH (21:18)
[2017-09-02] MEDS: CHOLECALCIFEROL 400 UNIT TABLET PO SCH (21:18)
[2017-09-02 21:36] LABS: Troponin I Only < 0.015 NG/ML (0.00-0.045)
[2017-09-02] MEDS: AMIODARONE 200 MG TABLET PO SCH (23:55)
[2017-09-03 04:55] LABS: Basophils # 0.1 10*3/uL (0.0-0.2); Basophils % 1.9 % (0.0-0.8); Eosinophils # 0.1 10*3/uL (0.0-0.87); Eosinophils % 1.9 % (0.00-10.9); Hematocrit 36.7 VOL% (42.0-52.0); Hemoglobin 11.9 GM/DL (14.0-18.0); Immature Granulocytes % 0.2 %; Immature Granulocytes Absolute 0.01 #; Lymphocytes # 1.1 10*3/uL (1.4-4.0); Lymphocytes % 19.4 % (21.2-54.2); Mean Corpuscular HGB Conc 32.4 GM/DL (32-36); Mean Corpuscular Hemoglobin 32 PG (27-34); Mean Corpuscular Volume 99.2 FL (87-102); Monocytes # 0.7 10*3/uL (0.11-0.8); Monocytes % 11.5 % (1.7-12.7); Neutrophils # 3.8 10*3/uL (1.4-7.4); Neutrophils % 65.1 % (38.7-73.9); Platelet Count 158 T/CUMM (130-400); Red Cell Distribution Width 13.9 % (9.3-17.3); White Blood Count 5.9 T/CUMM (4-12)
[2017-09-03 05:27] LABS: Calcium 9.2 MG/DL (8.5-10.1); Osmolality,Calculated 282.1 MOS/KG (273-304); Potassium 4.1 MMOL/L (3.5-5.1); Risk Ratio 3.24; VLDL CHOLESTEROL 10.8 MG/DL
[2017-09-03] MEDS: AMIODARONE 200 MG TABLET PO SCH ×2 (08:46→21:22)
[2017-09-03] MEDS ORDERED: METOPROLOL SUCCINATE XL 25 MG TABLET PO SCH ×2 (09:00→10:36)
[2017-09-03] MEDS: SODIUM CHLORIDE 0.9% 1,000 ML IV SCH ×2 (09:03→17:11)
[2017-09-03] MEDS: GABAPENTIN 300 MG CAPSULE PO SCH ×3 (09:05→21:22)
[2017-09-03] MEDS: CHOLECALCIFEROL 400 UNIT TABLET PO SCH ×2 (09:05→21:22)
[2017-09-03] MEDS: PANTOPRAZOLE 40 MG TABLET PO SCH (09:05)
[2017-09-03] MEDS: APIXABAN 5 MG TABLET PO SCH ×2 (09:05→21:22)
[2017-09-03] MEDS: ASCORBIC ACID 500 MG TABLET PO SCH ×2 (09:05→21:22)
[2017-09-03] MEDS: ASPIRIN EC 81 MG TABLET PO SCH (09:05)
[2017-09-04] MEDS: SODIUM CHLORIDE 0.9% 1,000 ML IV SCH ×2 (00:14→08:54)
[2017-09-04 04:43] LABS: Basophils # 0.1 10*3/uL (0.0-0.2); Basophils % 1.5 % (0.0-0.8); Eosinophils # 0.2 10*3/uL (0.0-0.87); Eosinophils % 2.7 % (0.00-10.9); Hematocrit 37.3 VOL% (42.0-52.0); Immature Granulocytes % 0.2 %; Immature Granulocytes Absolute 0.01 #; Lymphocytes # 1.1 10*3/uL (1.4-4.0); Lymphocytes % 19.1 % (21.2-54.2); Mean Corpuscular HGB Conc 32.2 GM/DL (32-36); Mean Corpuscular Hemoglobin 32 PG (27-34); Mean Corpuscular Volume 98.9 FL (87-102); Mean Platelet Volume 11.7 FL (9.6-12.0); Monocytes # 0.7 10*3/uL (0.11-0.8); Monocytes % 12.7 % (1.7-12.7); Neutrophils # 3.7 10*3/uL (1.4-7.4); Neutrophils % 63.8 % (38.7-73.9); Platelet Count 151 T/CUMM (130-400); Red Blood Count 3.77 MC/CUMM (3.8-5.5); Red Cell Distribution Width 13.6 % (9.3-17.3); White Blood Count 5.8 T/CUMM (4-12)
[2017-09-04 05:25] LABS: Calcium 9.3 MG/DL (8.5-10.1); Osmolality,Calculated 286.8 MOS/KG (273-304); Potassium 3.9 MMOL/L (3.5-5.1)
[2017-09-04 08:02] VITALS: BP 108/65
[2017-09-04] MEDS: ASPIRIN EC 81 MG TABLET PO SCH (08:57)
[2017-09-04] MEDS: CHOLECALCIFEROL 400 UNIT TABLET PO SCH (08:57)
[2017-09-04] MEDS: PANTOPRAZOLE 40 MG TABLET PO SCH (08:57)
[2017-09-04] MEDS: GABAPENTIN 300 MG CAPSULE PO SCH (08:57)
[2017-09-04] MEDS: ASCORBIC ACID 500 MG TABLET PO SCH (08:57)
[2017-09-04] MEDS: APIXABAN 5 MG TABLET PO SCH (08:57)
[2017-09-04] MEDS: AMIODARONE 200 MG TABLET PO SCH (08:57)
[2017-09-05] MEDS ORDERED: AMIODARONE 200 MG TABLET PO SCH (09:00)
== END 2017-09-04 13:05 | disposition home or self-care (01) ==
LOC: N.ED 09:18 → N.EDINP 12:23 → INTOOBSV 12:23 → N.TELES 13:46

== ENCOUNTER 2019-08-12 11:45 | Observation (INO) ==
[2019-08-12 12:16] LABS: Basophils # 0.1 10*3/uL (0.0-0.2); Basophils % 1.3 % (0.0-0.8); Eosinophils % 0.6 % (0.00-10.9); Hemoglobin 14.6 GM/DL (14.0-18.0); Immature Granulocytes % 0.3 %; Immature Granulocytes Absolute 0.02 #; Lymphocytes # 0.7 10*3/uL (1.4-4.0); Lymphocytes % 9.7 % (21.2-54.2); Mean Corpuscular HGB Conc 31.1 GM/DL (32-36); Mean Corpuscular Volume 104.7 FL (87-102); Mean Platelet Volume 10.8 FL (9.6-12.0); Neutrophils % 80.1 % (38.7-73.9); Platelet Count 187 T/CUMM (130-400); Red Blood Count 4.49 MC/CUMM (3.8-5.5); Red Cell Distribution Width 13.6 % (9.3-17.3); White Blood Count 7.2 T/CUMM (4-12)
[2019-08-12 12:30] LABS: Alanine Aminotransferase 21 U/L (16-61); Albumin 2.8 G/DL (3.4-5.0); Alkaline Phosphatase 118 U/L (45-117); Aspartate Amino Transferase 18 U/L (0-37); Bilirubin,Total < 0.39 MG/DL (0.2-1.0); Blood Urea Nitrogen 14 MG/DL (7-18); Calcium 10.2 MG/DL (8.5-10.1); Estimated Glom Filtration Rate 53 ML/MIN; Glucose 123 MG/DL (74-106); Osmolality,Calculated 284.1 MOS/KG (273-304); Total Protein 6.2 G/DL (6.4-8.3)
[2019-08-12] MEDS ORDERED: ACETAMINOPHEN 325 MG TABLET PO PRN (14:48)
[2019-08-12] MEDS ORDERED: ONDANSETRON 4 MG/2 ML VIAL IV PRN (14:48)
[2019-08-12] MEDS ORDERED: INFLUENZA VIRUS VACCINE 0.5 ML SYRINGE IM ONE (17:55)
[2019-08-12] MEDS: AMIODARONE 200 MG TABLET PO SCH ×2 (18:03→22:18)
[2019-08-12] MEDS: APIXABAN 5 MG TABLET PO SCH (22:17)
[2019-08-12] MEDS: ASCORBIC ACID 500 MG TABLET PO SCH (22:17)
[2019-08-13 03:51] LABS: Basophils # 0.1 10*3/uL (0.0-0.2); Basophils % 1.1 % (0.0-0.8); Eosinophils # 0.1 10*3/uL (0.0-0.87); Eosinophils % 1.2 % (0.00-10.9); Hemoglobin 12.8 GM/DL (14.0-18.0); Immature Granulocytes % 0.4 %; Immature Granulocytes Absolute 0.03 #; Lymphocytes % 11.5 % (21.2-54.2); Mean Corpuscular Volume 101.5 FL (87-102); Mean Platelet Volume 11.7 FL (9.6-12.0); Monocytes % 11.5 % (1.7-12.7); Neutrophils % 74.3 % (38.7-73.9); Platelet Count 160 T/CUMM (130-400); Red Blood Count 3.94 MC/CUMM (3.8-5.5); Red Cell Distribution Width 13.7 % (9.3-17.3); White Blood Count 8.4 T/CUMM (4-12)
[2019-08-13 04:25] LABS: Calcium 10.1 MG/DL (8.5-10.1); Osmolality,Calculated 280.4 MOS/KG (273-304)
[2019-08-13] MEDS ORDERED: PANTOPRAZOLE 40 MG TABLET PO SCH (09:00)
[2019-08-13] MEDS: ASCORBIC ACID 500 MG TABLET PO SCH (09:35)
[2019-08-13] MEDS: AMIODARONE 200 MG TABLET PO SCH (09:35)
[2019-08-13] MEDS: APIXABAN 5 MG TABLET PO SCH (09:36)
[2019-08-13 12:51] VITALS: BP 149/62
== END 2019-08-13 13:43 | disposition home or self-care (01) ==
LOC: N.ED 11:45 → N.EDINP 11:45 → N.2W 17:28
PROVIDERS: ADMIT Internal Medicine; ATTEND Internal Medicine